=== PATIENT | female | born 1950 | race Caucasian/White ===

== ENCOUNTER 2017-01-11 08:35 | Inpatient (IN) | payer MEDICARE ==
[2017-01-08 14:04] LABS: HEMOGLOBIN 14.4 g/dL (11.7-16.4)
[2017-01-08 14:17] LABS: BLOOD UREA NITROGEN 21 mg/dL (7-18)
[2017-01-08 14:22] LABS: ASPARTATE AMINO TRANSFERASE 15 U/L (15-37)
[~2017-01-11] VITALS: Ht 165.1 cm; Wt 56.7 kg
[~2017-01-11 08:35] MED LIST: BUPIVACAINE/PF 0.5% ONE; MELA3TAB PO; MULT-658 PO; PROG100C4 PO; SENN1TAB67 PO; bi-est PO
[2017-01-11] MEDS ORDERED: LACTATED RINGERS 1,000 ML IV SCH (09:19)
[2017-01-11 09:20] VITALS: BP 135/90
[2017-01-11] MEDS ORDERED: LIDOCAINE 1%, 2ML SQ PRN (09:30)
[2017-01-11] MEDS ORDERED: SCOPOLAMINE PATCH, 1.5MG PATCH.TD72 TD ONE ×2 (09:32)
[2017-01-11] MEDS ORDERED: GABAPENTIN 300 MG CAPSULE PO SCH (10:00)
[2017-01-11] MEDS ORDERED: ACETAMINOPHEN 500 MG TABLET PO ONE (10:00)
[2017-01-11] MEDS ORDERED: FENTANYL PF 250 MCG/5ML ONE (10:07)
[2017-01-11] MEDS ORDERED: MIDAZOLAM 1 MG/ML, 2ML ONE (10:07)
[2017-01-11] MEDS ORDERED: ROCURONIUM 10 MG/ML ONE (10:14)
[2017-01-11] MEDS ORDERED: CEFOTETAN 2 GM ONE (10:14)
[2017-01-11] MEDS ORDERED: PROPOFOL 10 MG/ML, 20ML ONE (10:14)
[2017-01-11] MEDS ORDERED: DEXAMETHASONE 4 MG/ML, 1ML ONE (10:14)
[2017-01-11] MEDS ORDERED: ONDANSETRON 2MG/ML, 2ML ONE ×2 (10:14→12:24)
[2017-01-11] MEDS ORDERED: MEPERIDINE/PF 25MG/0.5ML IVPush PRN (11:00)
[2017-01-11] MEDS ORDERED: ONDANSETRON 2MG/ML, 2ML IVPush PRN (11:00)
[2017-01-11] MEDS ORDERED: MIDAZOLAM 1 MG/ML, 2ML IV PRN (11:00)
[2017-01-11] MEDS ORDERED: OXYcodone 5 MG/5 ML ORAL.SOL UDC PO PRN ×2 (11:00→16:00)
[2017-01-11] MEDS ORDERED: INDOCYANINE GREEN 25 MG VIAL ONE (11:11)
[2017-01-11] MEDS ORDERED: FENTANYL PF 100 MCG/2ML ONE (12:24)
[2017-01-11] MEDS ORDERED: hydrALAzine 20 MG/ML, 1ML ONE (12:24)
[2017-01-11] MEDS: FENTANYL PF 100 MCG/2ML IV PRN ×3 (12:28→13:00)
[2017-01-11] MEDS ORDERED: hydrALAzine 20 MG/ML, 1ML IV PRN (12:30)
[2017-01-11] MEDS ORDERED: LABETALOL 5MG/ML, 20ML IV PRN (12:30)
[2017-01-11] MEDS ORDERED: PROMETHAZINE 25 MG/ML, 1ML ONE (13:55)
[2017-01-11] MEDS: PROMETHAZINE 25 MG/ML, 1ML IV PRN ×3 (13:57→14:39)
[2017-01-11] MEDS ORDERED: HYDROmorphone 2 MG/ML, 1ML ONE (14:40)
[2017-01-11] MEDS: HYDROmorphone 1 MG/ML, 1ML IV PRN ×2 (14:42→14:47)
[2017-01-11] MEDS ORDERED: HALOPERIDOL 5 MG/ML ONE (14:49)
[2017-01-11] MEDS ORDERED: METOCLOPRAMIDE 5 MG/ML, 2ML ONE (14:49)
[2017-01-11] MEDS ORDERED: HALOPERIDOL 5 MG/ML IV PRN (15:00)
[2017-01-11] MEDS ORDERED: METOCLOPRAMIDE 5 MG/ML, 2ML IVPush PRN (15:00)
[2017-01-11] MEDS ORDERED: ONDANSETRON 2MG/ML, 2ML IV PRN (16:00)
[2017-01-11] MEDS ORDERED: LORazepam 2 MG/ML, 1ML IV PRN (16:00)
[2017-01-11] MEDS ORDERED: DIPHENHYDRAMINE 50 MG/ML, 1ML IV PRN (16:00)
[2017-01-11] MEDS ORDERED: DIPHENHYDRAMINE 25 MG CAPSULE PO PRN (16:00)
[2017-01-11] MEDS ORDERED: HYDROmorphone 1 MG/ML, 1ML IV PRN ×3 (16:00→18:00)
[2017-01-11] MEDS ORDERED: POTASSIUM CHLORIDE 20 MEQ in D5%-0.45% NACL 1,000 ML IV SCH (16:00)
[2017-01-11] MEDS ORDERED: LORazepam 1MG TABLET PO PRN (16:00)
[2017-01-11] MEDS: FAMOTIDINE 20 MG TABLET PO SCH (17:01)
[2017-01-11] MEDS: ACETAMINOPHEN 500 MG TABLET PO SCH ×2 (17:01→22:31)
[2017-01-11] MEDS: IBUPROFEN 600 MG TABLET PO SCH ×2 (17:02→20:23)
[2017-01-11 18:55] VITALS: BP 137/79
[2017-01-11] MEDS: PROGESTERONE 100 MG CAPSULE PO SCH (21:44)
[2017-01-11] MEDS: CEFOTETAN PMX 1GM/50ML 50 ML IVPB SCH (22:39)
[2017-01-11 23:44] VITALS: BP 112/65
[2017-01-12] MEDS: ACETAMINOPHEN 500 MG TABLET PO SCH ×4 (04:26→17:48)
[2017-01-12 04:45] VITALS: BP 136/76
[2017-01-12 05:46] LABS: BLOOD UREA NITROGEN 10 mg/dL (7-18)
[2017-01-12] MEDS: FAMOTIDINE 20 MG TABLET PO SCH ×2 (06:06→17:48)
[2017-01-12] MEDS: ENOXAPARIN 40 MG/0.4 ML SQ SCH (06:07)
[2017-01-12 08:18] VITALS: BP 146/78
[2017-01-12] MEDS: IBUPROFEN 600 MG TABLET PO SCH ×3 (08:58→20:42)
[2017-01-12] MEDS ORDERED: PROGESTERONE 100 MG CAPSULE PO SCH (09:00)
[2017-01-12] MEDS: CEFOTETAN PMX 1GM/50ML 50 ML IVPB SCH (10:55)
[2017-01-12 14:51] VITALS: BP 149/90
[2017-01-12 20:35] VITALS: BP 134/83
[2017-01-12] MEDS: PROGESTERONE 100 MG CAPSULE PO SCH (20:42)
[2017-01-13] MEDS: ACETAMINOPHEN 500 MG TABLET PO SCH ×2 (00:22→05:55)
[2017-01-13 03:14] VITALS: BP 125/77
[2017-01-13] MEDS: FAMOTIDINE 20 MG TABLET PO SCH (05:55)
[2017-01-13] MEDS: ENOXAPARIN 40 MG/0.4 ML SQ SCH (05:57)
[2017-01-13 06:12] LABS: HEMOGLOBIN 13.3 g/dL (11.7-16.4)
[2017-01-13 06:24] LABS: BLOOD UREA NITROGEN 8 mg/dL (7-18)
[2017-01-13 06:45] VITALS: BP 143/83
[2017-01-13] MEDS: IBUPROFEN 600 MG TABLET PO SCH (08:59)
== END 2017-01-13 10:06 | disposition home or self-care (01) | DRG 331 ==
LOC: ORIP 08:35 → 4NOR 15:30
PROVIDERS: ADMIT Surgery; ATTEND Surgery
PROC: 0DBP3ZZ Excision of Rectum, Percutaneous Approach (ICD-10-PCS; 2017-01-11)
PROC: 8E0W4CZ Robotic Assisted Procedure of Trunk Region, Percutaneous Endoscopic Approach (ICD-10-PCS; 2017-01-11)
PROC: 0DBK4ZZ Excision of Ascending Colon, Percutaneous Endoscopic Approach (ICD-10-PCS; principal; 2017-01-11 10:30)
DX: K57.30 Diverticulosis of large intestine without perforation or abscess without bleeding (principal); K66.0 Peritoneal adhesions (postprocedural) (postinfection)
CPT/HCPCS: 36415; 71020; 80048; 80053; 82040; 85025; 86850; 86900; 88307; 93005; C1729; J1100; J1170; J1650; J2250; J2405; J2550; J2704; J3010; J3480; J3490; J0360; J2765; J7120; S0074